=== PATIENT | male | born 1960 | race Caucasian/White ===

== ENCOUNTER 2018-01-31 08:36 | Emergency (ER) | payer SELFPAY | END 2018-01-31 11:39 | disposition home or self-care (01) | LOC: FTE 08:36 | DX: S00.03XA Contusion of scalp, initial encounter (principal); V03.10XA Pedestrian on foot injured in collision with car, pick-up truck or van in traffic accident, initial encounter | CPT/HCPCS: 70450; 99284-25 ==

== ENCOUNTER 2018-07-24 07:17 | Day surgery (SDC) | payer OTHER ==
[2018-07-24] MEDS ORDERED: FENTAnyl 50 MCG/ML VIAL (09:42)
[2018-07-24] MEDS ORDERED: MIDAZOLAM 1 MG/ML 2 ML INJ ×3 (09:42→17:01)
== END 2018-07-24 12:16 | disposition home or self-care (01) ==
LOC: GIL 07:17
DX: Z12.11 Encounter for screening for malignant neoplasm of colon (principal); K64.8 Other hemorrhoids; K57.30 Diverticulosis of large intestine without perforation or abscess without bleeding
CPT/HCPCS: 45378

== ENCOUNTER 2018-11-28 07:41 | Day surgery (SDC) | payer OTHER ==
[2018-11-28] MEDS ORDERED: LACTATED RINGER'S 1,000 ML IV (09:00)
[2018-11-28] MEDS ORDERED: NEOMYC/POLYMYX/BACIT 30 GM OINT (09:23)
[2018-11-28] MEDS ORDERED: DEXAMETHASONE 4 MG/ML 5 ML INJ (09:48)
[2018-11-28] MEDS ORDERED: FENTAnyl 50 MCG/ML VIAL (09:48)
[2018-11-28] MEDS ORDERED: ONDANSETRON 4 MG INJ (09:48)
[2018-11-28] MEDS ORDERED: PROPOFOL 20 ML (09:50)
[2018-11-28] MEDS ORDERED: FAMOTIDINE 20 MG INJ (09:50)
[2018-11-28] MEDS ORDERED: METOCLOPRAMIDE 10 MG INJ (09:50)
[2018-11-28] MEDS ORDERED: LIDOCAINE 2% (SDV) 5 ML INJ (09:50)
[2018-11-28] MEDS ORDERED: CEFAZOLIN 1 GM INJ (09:50)
[2018-11-28] MEDS ORDERED: KETOROLAC 30 MG INJ (09:51)
[2018-11-28] MEDS ORDERED: morphine 2 MG INJ IV (10:00)
[2018-11-28] MEDS: ROPIVACAINE 0.5 % 30 ML VIAL (10:18)
[2018-11-28] MEDS ORDERED: MEPERIDINE 25 MG INJ IV (10:30)
[2018-11-28] MEDS ORDERED: hydrALAzine 20 MG INJ IV (10:30)
[2018-11-28] MEDS ORDERED: ONDANSETRON 4 MG INJ IV (10:30)
[2018-11-28] MEDS ORDERED: HYDROmorphONE 1 MG/5 ML IV SYRINGE IV ×3 (10:30)
[2018-11-28] MEDS ORDERED: LABETALOL HCL 20MG INJ IV (10:30)
[2018-11-28] MEDS ORDERED: OXYCODONE/ACETAMINOPHEN (5/325) TAB PO (10:30)
[2018-11-28] MEDS: KETOROLAC 30 MG INJ IV (11:12)
[2018-11-28] MEDS: OXYCODONE/ACETAMINOPHEN (5/325) TAB PO (11:48)
== END 2018-11-28 12:24 | disposition home or self-care (01) ==
LOC: SDS 07:41
DX: S83.241A Other tear of medial meniscus, current injury, right knee, initial encounter (principal); S83.282A Other tear of lateral meniscus, current injury, left knee, initial encounter; M25.562 Pain in left knee; M94.262 Chondromalacia, left knee; E83.52 Hypercalcemia
CPT/HCPCS: 29880; 82306